=== PATIENT | female | born 1960 | race Caucasian/White ===

== ENCOUNTER 2018-10-10 16:50 | Inpatient (IN) | payer MEDICAID ==
[~2018-10-10] VITALS: Ht 162.6 cm; Wt 70.0 kg
[2018-10-10] MEDS ORDERED: POTASSIUM CHLORIDE 20 MEQ TAB.ER.PRT ONE (17:17)
[2018-10-10] MEDS ORDERED: CEFTRIAXONE PMX 1GM/50ML 50 ML ONE (17:17)
[2018-10-10] MEDS ORDERED: MORPHINE SULFATE 4 MG/ML, 1ML IVPush PRN (17:30)
[2018-10-10] MEDS ORDERED: SODIUM CHLORIDE 0.9% 1,000ML IVBOLUS ONE (17:30)
[2018-10-10] MEDS ORDERED: ONDANSETRON 2MG/ML, 2ML IVPush ONE (17:30)
--- NOTE | 2018-10-10 17:54 | NUR ---
PT AMBULATORY TO BATHROOM WITH STEADY GAIT. BACK TO ROOM. STATES SHE DOESN NOT NEED PAIN OR NAUSEA MEDS AT THIS TIME, WILL CONTINUE YO HOLD. PT TO CT.
[2018-10-10 17:59] LABS: BASOPHILS # (AUTO) 0.01 x10^3/uL (0-0.1); BASOPHILS % (AUTO) 0 % (0-1); EOSINOPHILS # (AUTO) 0.02 x10^3/uL (0-0.4); EOSINOPHILS % (AUTO) 1 % (1-7); LYMPHOCYTES # (AUTO) 0.51 x10^3/uL (1-3.4); LYMPHOCYTES % (AUTO) 14 % (22-44); MD NO; MEAN CORPUSCULAR HEMOGLOBIN 27.1 pg (27.0-34.8); MEAN CORPUSCULAR HGB CONC 33.9 g/dL (32.4-35.8); MEAN CORPUSCULAR VOLUME 79.8 fL (80-100); MEAN PLATELET VOLUME 9.6 fL (7.4-10.4); MONOCYTES # (AUTO) 0.51 x10^3/uL (0.2-0.8); MONOCYTES % (AUTO) 14 % (2-9); NEUTROPHILS # (AUTO) 2.55 x10^3/uL (1.8-6.8); NEUTROPHILS % (AUTO) 71 % (42-75); PLATELET COUNT 160 x10^3/uL (130-400); RED BLOOD COUNT 3.58 x10^6/uL (3.82-5.3); RED CELL DISTRIBUTION WIDTH 16.2 % (9.6-15.2)
[2018-10-10 18:05] LABS: ALANINE AMINOTRANSFERASE 25 U/L (12-78); ALBUMIN 2.9 g/dL (3.4-5.0); ANION GAP 9 mmol/L (5-15); CALCIUM 7.8 mg/dL (8.5-10.1); CHLORIDE 103 mmol/L (98-107); CREATININE 0.86 mg/dL (0.55-1.02)
[2018-10-10 18:07] LABS: ALKALINE PHOSPHATASE 233 U/L (45-117); BILIRUBIN,TOTAL 0.3 mg/dL (0.2-1.0); TOTAL PROTEIN 6.2 g/dL (6.4-8.2)
[2018-10-10 18:19] LABS: CULTURE INDICATED? YES; MICROSCOPIC AUTO
--- NOTE | 2018-10-10 19:00 | NUR ---
REPORT RECEIVED FROM WANDA ANN.
--- NOTE | 2018-10-10 19:00 | NUR ---
BEDSIDE HANDOFF REPORT TO MARISSA CARIAS AND MARISSA ZULUAGA.
--- NOTE | 2018-10-10 19:16 | NUR ---
THIS RN ASKED PT AND FILLED OUT MRI SAFETY SCREENING AT THIS TIME AND FAXED TO MRI.
--- NOTE | 2018-10-10 19:22 | NUR ---
PT IN MRI NOW.
--- NOTE | 2018-10-10 19:52 | NUR ---
PT REMAINS MRI STILL.
[2018-10-10] MEDS ORDERED: GADOBUTROL 7.5 MMOL/7.5 ML PFS ONE (20:07)
--- NOTE | 2018-10-10 20:18 | NUR ---
NING PIMENTEL [phone]
--- NOTE | 2018-10-10 20:48 | NUR ---
PT BACK TO ROOM NOW
[2018-10-10] MEDS ORDERED: ONDANSETRON 2MG/ML, 2ML ONE (21:11)
[2018-10-10] MEDS ORDERED: MORPHINE SULFATE 4 MG/ML, 1ML ONE (21:12)
--- NOTE | 2018-10-10 21:17 | NUR ---
PT AMB TO BR WITH STEADY GAIT.
--- NOTE | 2018-10-10 21:23 | NUR ---
PT MEDICATED PER EMAR. PT TOLERATED WELL. PT'S AOX4. RESPS EVEN AND UNLABORED.
[2018-10-10] MEDS ORDERED: VANCOMYCIN PER PHARMACY MC PRN (21:30)
--- NOTE | 2018-10-10 22:12 | NUR ---
REPORT GIVEN TO GEGE ANN. ALL QUESTIONS ANSWERED.
[2018-10-10 22:27] VITALS: BP 91/67
[2018-10-10] MEDS ORDERED: VANCOMYCIN 1,300 MG in SODIUM CHLORIDE 0.9% 250 ML IV ONE (22:30)
[2018-10-10] MEDS: SODIUM CHLORIDE 0.9% 1,000 ML IV SCH (23:59)
[2018-10-11] MEDS ORDERED: ACETAMINOPHEN 325 MG TABLET PO PRN
[2018-10-11] MEDS ORDERED: ENALAPRILAT 1.25 MG/ML, 2ML IVPush PRN
[2018-10-11] MEDS ORDERED: VANCOMYCIN PER PHARMACY MC PRN
[2018-10-11] MEDS ORDERED: LIDODERM 5% PATCH TD PRN
[2018-10-11] MEDS ORDERED: TEMAZEPAM 15 MG CAPSULE PO PRN
[2018-10-11] MEDS ORDERED: ONDANSETRON ODT 4 MG PO PRN
[2018-10-11] MEDS ORDERED: POTASSIUM CHLORIDE 20 MEQ TAB.ER.PRT PO ONE (00:30)
[2018-10-11] MEDS ORDERED: PHARMACOKINETIC MONITORING MC PRN (01:00)
[2018-10-11 01:36] VITALS: BP 108/73
[2018-10-11] MEDS: HEPARIN 5,000 UNITS/ML, 1ML SQ SCH ×3 (01:52→16:02)
[2018-10-11] MEDS: SODIUM CHLORIDE 0.9% 1,000 ML IV SCH ×4 (01:53→17:53)
[2018-10-11 05:07] LABS: BASOPHILS # (AUTO) 0.01 x10^3/uL (0-0.1); BASOPHILS % (AUTO) 0 % (0-1); EOSINOPHILS # (AUTO) 0.06 x10^3/uL (0-0.4); EOSINOPHILS % (AUTO) 2 % (1-7); LYMPHOCYTES # (AUTO) 0.48 x10^3/uL (1-3.4); LYMPHOCYTES % (AUTO) 14 % (22-44); MD NO; MEAN CORPUSCULAR HEMOGLOBIN 26.5 pg (27.0-34.8); MEAN CORPUSCULAR HGB CONC 32.7 g/dL (32.4-35.8); MEAN CORPUSCULAR VOLUME 81.1 fL (80-100); MEAN PLATELET VOLUME 9.6 fL (7.4-10.4); MONOCYTES # (AUTO) 0.44 x10^3/uL (0.2-0.8); MONOCYTES % (AUTO) 13 % (2-9); NEUTROPHILS # (AUTO) 2.37 x10^3/uL (1.8-6.8); NEUTROPHILS % (AUTO) 71 % (42-75); PLATELET COUNT 157 x10^3/uL (130-400); RED BLOOD COUNT 3.78 x10^6/uL (3.82-5.3); RED CELL DISTRIBUTION WIDTH 16.7 % (9.6-15.2)
[2018-10-11 05:14] LABS: ANION GAP 6 mmol/L (5-15); CALCIUM 7.6 mg/dL (8.5-10.1); CHLORIDE 109 mmol/L (98-107); CREATININE 0.68 mg/dL (0.55-1.02)
[2018-10-11 09:24] VITALS: BP 108/73
[2018-10-11] MEDS ORDERED: METH750T2 PO (10:19)
[2018-10-11] MEDS ORDERED: LORA10TA62 PO (10:19)
[2018-10-11] MEDS ORDERED: OXYC10TA72 PO (10:19)
[2018-10-11] MEDS ORDERED: AMLO-150 PO (10:19)
[2018-10-11] MEDS ORDERED: ALPR1TAB2 PO (10:19)
[2018-10-11] MEDS ORDERED: CITA40TA12 PO (10:19)
[2018-10-11] MEDS ORDERED: CLON0.1T2 PO (10:19)
[2018-10-11] MEDS ORDERED: IBUP-1223 PO (10:19)
[2018-10-11] MEDS ORDERED: CLONIDINE HCL 0.1 MG PO SCH (11:00)
[2018-10-11] MEDS ORDERED: VANCOMYCIN 1,200 MG in SODIUM CHLORIDE 0.9% 250 ML IV SCH (11:00)
[2018-10-11] MEDS: OXYcodone IR 5MG TABLET PO PRN ×2 (11:04→19:33)
[2018-10-11] MEDS: ALPRazolam 1MG TABLET PO SCH ×2 (11:28→20:07)
[2018-10-11] MEDS: LORATADINE 10 MG TABLET PO SCH (11:28)
[2018-10-11] MEDS: AMLODIPINE 5 MG TABLET PO SCH (11:28)
[2018-10-11] MEDS ORDERED: CLONIDINE MC SCH (11:30)
[2018-10-11 15:59] VITALS: BP 134/85
[2018-10-11] MEDS: DOCUSATE 100 MG CAPSULE PO PRN (16:02)
[2018-10-11] MEDS: KETOROLAC 30 MG/1 ML IM SCH ×2 (17:52→23:06)
[2018-10-11] MEDS ORDERED: MORPHINE SULFATE 4 MG/ML, 1ML IVPush ONE (18:00)
[2018-10-11 19:58] VITALS: BP 101/66
[2018-10-11] MEDS: CITALOPRAM 20 MG TABLET PO SCH (20:07)
[2018-10-11] MEDS: NICOTINE 7 MG/24 HR PATCH.TD24 TD SCH (23:06)
[2018-10-12 00:02] VITALS: BP 92/59
[2018-10-12] MEDS: HEPARIN 5,000 UNITS/ML, 1ML SQ SCH ×3 (00:29→16:17)
[2018-10-12] MEDS: SODIUM CHLORIDE 0.9% 1,000 ML IV SCH ×3 (02:05→20:27)
[2018-10-12] MEDS: OXYcodone IR 5MG TABLET PO PRN ×3 (02:08→22:07)
[2018-10-12 04:52] LABS: HCT (SEDRATE) 27.7 % (34.6-47.8)
[2018-10-12 04:56] LABS: BASOPHILS # (AUTO) 0.01 x10^3/uL (0-0.1); BASOPHILS % (AUTO) 1 % (0-1); EOSINOPHILS % (AUTO) 4 % (1-7); LYMPHOCYTES # (AUTO) 0.71 x10^3/uL (1-3.4); LYMPHOCYTES % (AUTO) 27 % (22-44); MD NO; MEAN CORPUSCULAR HGB CONC 33.4 g/dL (32.4-35.8); MEAN CORPUSCULAR VOLUME 80.8 fL (80-100); MEAN PLATELET VOLUME 8.9 fL (7.4-10.4); MONOCYTES # (AUTO) 0.32 x10^3/uL (0.2-0.8); MONOCYTES % (AUTO) 12 % (2-9); NEUTROPHILS # (AUTO) 1.48 x10^3/uL (1.8-6.8); NEUTROPHILS % (AUTO) 56 % (42-75); PLATELET COUNT 161 x10^3/uL (130-400); RED BLOOD COUNT 3.46 x10^6/uL (3.82-5.3); RED CELL DISTRIBUTION WIDTH 16.5 % (9.6-15.2)
[2018-10-12] MEDS ORDERED: VANCOMYCIN 1,200 MG in SODIUM CHLORIDE 0.9% 250 ML IV SCH (05:00)
[2018-10-12 05:06] LABS: ANION GAP 5 mmol/L (5-15); CALCIUM 7.7 mg/dL (8.5-10.1); CHLORIDE 110 mmol/L (98-107); CREATININE 0.64 mg/dL (0.55-1.02)
[2018-10-12] MEDS: KETOROLAC 30 MG/1 ML IM SCH ×3 (05:22→17:16)
[2018-10-12] MEDS: AMLODIPINE 5 MG TABLET PO SCH (08:25)
[2018-10-12] MEDS: ALPRazolam 1MG TABLET PO SCH ×2 (08:25→20:27)
[2018-10-12] MEDS: METHOCARBAMOL 750 MG TABLET PO SCH (08:25)
[2018-10-12] MEDS: LORATADINE 10 MG TABLET PO SCH (08:25)
[2018-10-12 09:00] VITALS: BP 117/76
[2018-10-12 14:25] VITALS: BP 104/72
[2018-10-12 20:00] VITALS: BP 112/77
[2018-10-12] MEDS: CITALOPRAM 20 MG TABLET PO SCH (20:27)
[2018-10-12] MEDS: DOCUSATE 100 MG CAPSULE PO PRN (20:29)
[2018-10-12] MEDS: NICOTINE 7 MG/24 HR PATCH.TD24 TD SCH (22:07)
[2018-10-13] MEDS: HEPARIN 5,000 UNITS/ML, 1ML SQ SCH ×4 (00:08→23:22)
[2018-10-13] MEDS: OXYcodone IR 5MG TABLET PO PRN ×5 (00:08→23:22)
[2018-10-13] MEDS: KETOROLAC 30 MG/1 ML IM SCH ×5 (00:09→23:22)
[2018-10-13 01:03] VITALS: BP 125/86
[2018-10-13] MEDS: SODIUM CHLORIDE 0.9% 1,000 ML IV SCH ×3 (03:48→21:09)
[2018-10-13 06:07] LABS: CHLORIDE 110 mmol/L (98-107)
[2018-10-13 06:15] LABS: BASOPHILS # (AUTO) 0.01 x10^3/uL (0-0.1); BASOPHILS % (AUTO) 0 % (0-1); EOSINOPHILS # (AUTO) 0.15 x10^3/uL (0-0.4); EOSINOPHILS % (AUTO) 5 % (1-7); LYMPHOCYTES % (AUTO) 24 % (22-44); MD NO; MEAN CORPUSCULAR HEMOGLOBIN 26.4 pg (27.0-34.8); MEAN CORPUSCULAR HGB CONC 32.7 g/dL (32.4-35.8); MEAN CORPUSCULAR VOLUME 80.5 fL (80-100); MEAN PLATELET VOLUME 9.3 fL (7.4-10.4); MONOCYTES # (AUTO) 0.33 x10^3/uL (0.2-0.8); MONOCYTES % (AUTO) 10 % (2-9); NEUTROPHILS # (AUTO) 2.02 x10^3/uL (1.8-6.8); NEUTROPHILS % (AUTO) 61 % (42-75); PLATELET COUNT 185 x10^3/uL (130-400); RED BLOOD COUNT 3.67 x10^6/uL (3.82-5.3); RED CELL DISTRIBUTION WIDTH 16.7 % (9.6-15.2)
[2018-10-13 06:16] LABS: ANION GAP 6 mmol/L (5-15); CALCIUM 7.9 mg/dL (8.5-10.1); CREATININE 0.52 mg/dL (0.55-1.02)
[2018-10-13 07:40] VITALS: BP 109/72
[2018-10-13] MEDS: AMLODIPINE 5 MG TABLET PO SCH (08:21)
[2018-10-13] MEDS: METHOCARBAMOL 750 MG TABLET PO SCH (08:21)
[2018-10-13] MEDS: ALPRazolam 1MG TABLET PO SCH ×2 (08:21→21:09)
[2018-10-13] MEDS: LORATADINE 10 MG TABLET PO SCH (08:21)
[2018-10-13 14:00] VITALS: BP 113/78
[2018-10-13] MEDS: DOCUSATE 100 MG CAPSULE PO PRN (17:09)
[2018-10-13 18:34] VITALS: BP 127/85
[2018-10-13] MEDS: CITALOPRAM 20 MG TABLET PO SCH (21:09)
[2018-10-13] MEDS: NICOTINE 7 MG/24 HR PATCH.TD24 TD SCH (23:23)
[2018-10-14 02:37] VITALS: BP 111/74
[2018-10-14] MEDS: KETOROLAC 30 MG/1 ML IM SCH ×2 (05:22→11:37)
[2018-10-14] MEDS: OXYcodone IR 5MG TABLET PO PRN (05:22)
[2018-10-14] MEDS: SODIUM CHLORIDE 0.9% 1,000 ML IV SCH ×2 (05:22→15:00)
[2018-10-14 07:05] VITALS: BP 118/77
[2018-10-14] MEDS: METHOCARBAMOL 750 MG TABLET PO SCH (08:47)
[2018-10-14] MEDS: HEPARIN 5,000 UNITS/ML, 1ML SQ SCH ×2 (08:47→16:00)
[2018-10-14] MEDS: LORATADINE 10 MG TABLET PO SCH (08:47)
[2018-10-14] MEDS: AMLODIPINE 5 MG TABLET PO SCH (08:47)
[2018-10-14] MEDS: ALPRazolam 1MG TABLET PO SCH (08:47)
[2018-10-14 15:06] VITALS: BP 118/89
== END 2018-10-14 16:55 | disposition home or self-care (01) | DRG 540 ==
LOC: ED 20:39 → EDIP 21:06 → 4NOR 22:19
PROVIDERS: ADMIT Internal Medicine; ATTEND Internal Medicine
DX: M46.26 Osteomyelitis of vertebra, lumbar region (principal); F11.20 Opioid dependence, uncomplicated; M46.46 Discitis, unspecified, lumbar region; Z86.14 Personal history of Methicillin resistant Staphylococcus aureus infection; Z86.61 Personal history of infections of the central nervous system; N20.0 Calculus of kidney; I10 Essential (primary) hypertension; G89.29 Other chronic pain; F17.200 Nicotine dependence, unspecified, uncomplicated; Z88.0 Allergy status to penicillin
CPT/HCPCS: 36415; 71045; 72158; 74176; 80048; 80053; 81001; 83605; 83690; 83735; 84145; 85025; 85651; 86140; 87040; 87086; 96374; 96375; 99285; A9585; G0378; J1644; J1885; J2405; J3370; J7030; J7050